=== PATIENT | female | born 1965 | race Caucasian/White ===

== ENCOUNTER 2017-06-13 11:09 | Emergency (ER) | payer MEDICARE, MEDICAID ==
[2017-06-13] MEDS ORDERED: Albuterol/Ipratropium NEB.SOL* Albuterol 2.5 MG/Ipratropium 0.5 MG 3 ML INH ONE (11:22)
[2017-06-13] MEDS ORDERED: predniSONE TAB* 20 MG PO ONE (11:22)
--- NOTE | 2017-06-13 11:40 | UC ---
Respiratory Complaint HPI - HPI Summary HPI Summary: 3-4 days of worsening SOB, No fever and she cannot remember when she had this much trouble breathing-last time she had to nebulize meds was 4-5 years ago - History of Current Complaint Chief Complaint: UCRespiratory Stated Complaint: SOB HEADACHE CONGESTION Time Seen by Provider: 06/13/17 11:15 Hx Obtained From: Patient Hx Last Menstrual Period: 4 MONTHS AGO ?: No Onset/Duration: Sudden Onset, Lasting Days - 4, Still Present Timing: Constant Pain Intensity: 0 Character: Cough: Nonproductive Aggravating Factors: Deep Breaths, Recumbent Position Alleviating Factors: Nothing Associated Signs And Symptoms: Positive: Dyspnea, URI - Allergies/Home Medications Allergies/Adverse Reactions: Allergies Allergy/AdvReac Type Severity Reaction Status Date / Time cefuroxime Allergy Rash Verified 06/13/17 11:17 Sulfa (Sulfonamide Allergy Hives Verified 06/13/17 11:17 Antibiotics) Home Medications: Home Medications Multiple Vitamin [Multivitamins] 1 cap PO DAILY 06/13/17 [History Confirmed 06/29] PMH/Surg Hx/FS Hx/Imm Hx Previously Healthy: No - Chronic Pain Respiratory History: COPD GI/ History: Other Other GI/ History: IBS Psychological History: Depression - Surgical History Surgical History: Yes Surgery Procedure, Year, and Place: c section, [place] [facility] [place] Family History Known Family History: Positive: None - Social History Occupation: Disabled Lives: With Family Alcohol Use: Daily Alcohol Amount: 12 pack/day Substance Use Type: None Substance Use Comment - Amount & Last Used: oxycodone Smoking Status (MU): Heavy Every Day Tobacco Smoker Type: Cigarettes Amount Used/How Often: 1 1/2 PPD Have You Smoked in the Last Year: Yes Household Exposure Type: Cigarettes Review of Systems Constitutional: Negative, Fatigue Skin: Negative Eyes: Negative ENT: Negative Respiratory: Shortness Of Breath, Cough Cardiovascular: Negative Gastrointestinal: Negative Genitourinary: Negative Motor: Negative Neurovascular: Negative Musculoskeletal: Negative Neurological: Negative Psychological: Negative Is Patient Immunocompromised?: No All Other Systems Reviewed And Are Negative: Yes Physical Exam Triage Information Reviewed: Yes Appearance: No Pain Distress, Ill-Appearing - chroniclly older than stated age, Thin Vital Signs: Initial Vital Signs Temp 98.4 F 06/13/17 11:12 Pulse 106 06/13/17 11:12 Resp 18 06/13/17 11:12 BP 146/92 06/13/17 11:12 Pulse Ox 94 06/13/17 11:12 Vital Signs Reviewed: Yes Eye Exam: Normal Eyes: Positive: Conjunctiva Clear ENT Exam: Normal ENT: Positive: Normal ENT inspection, Hearing grossly normal, Pharynx normal, TMs normal, Uvula midline. Negative: Nasal congestion, Nasal drainage, Tonsillar swelling, Trismus, Muffled voice, Hoarse voice, Dental tenderness, Sinus tenderness Neck exam: Normal Neck: Positive: Supple, Nontender, No Lymphadenopathy Respiratory Exam: Normal Respiratory: Positive: Chest non-tender, No accessory muscle use, Decreased breath sounds Cardiovascular Exam: Normal Cardiovascular: Positive: RRR, No Murmur, Pulses Normal, Brisk Capillary Refill Musculoskeletal Exam: Normal Musculoskeletal: Positive: Strength Intact, ROM Intact, No Edema Neurological Exam: Normal Neurological: Positive: Alert, Muscle Tone Normal Psychological Exam: Normal Skin Exam: Normal UC Diagnostic Evaluation - Laboratory O2 Sat by Pulse Oximetry: 94 Diagnostic Studies Comment: Influenza A/b (-) - Radiology Xray Interpretation: Positive (See Comments) - COPD, Linear Atelectasis of the Lingula Radiology Interpretation Completed By: Radiologist - EKG Cardiac Rate: NL Cardiac Rhythm: Sinus: Normal Ectopy: None ST Segment: Normal Re-Evaluation - Re-Evaluation First Eval Change: Improved - peak flow 150, taking po fluids, taking with daughter, feeling better, increase air movement- Respiratory Course/Dx - Course Course Of Treatment: Zithromax, albuterol neb, prednisone, alcohol and tabacco cesasation information, to ED should sx worsen in any way follow with pcp - Differential Dx/Diagnosis Provider Diagnoses: Acute exacerbation of COPD, Nicotine Dependent, alcohol abuse,elevated bloodpressure with diagnosis of hypertension Discharge - Discharge Plan Condition: Stable Disposition: HOME Prescriptions: Albuterol 2.5MG/3ML (0.083%)* [Ventolin 2.5 MG/3 ML NEB.BHAVANA*] 2.5 mg INH Q4H PRN #2 box PRN Reason: cough/wheeze/sob Azithromycin TAB* [Zithromax TAB (Z-ISABELL) 250 mg #6 tabs] 250 mg PO DAILY #4 tab predniSONE TAB* [Deltasone TAB*] 10 mg PO DAILY #26 tab Patient Education Materials: How to Stop Smoking (ED), COPD (Chronic Obstructive Pulmonary Disease) (ED), Chronic Bronchitis (ED), Hypertension (ED) , Alcohol Use Disorder (ED), Dyspnea Scale and Exercise (ED) Referrals: Bar Knox MD [Primary Care Provider] - 1 Week Additional Instructions: To Ed should symptoms worsen in anyway
[2017-06-13] MEDS ORDERED: Albuterol 2.5 MG/3 ML NEB.SOL* (0.083%) INH ONE ×2 (12:19→13:23)
--- NOTE | 2017-06-13 12:24 | RAD ---
HISTORY: Shortness of breath, COPD COMPARISONS: July 05, 2013 VIEWS: 4: Frontal dual-energy and lateral views of the chest. FINDINGS: CARDIOMEDIASTINAL SILHOUETTE: The cardiomediastinal silhouette is normal. BINTA: The binta are normal. PLEURA: The costophrenic angles are sharp. No pleural abnormalities are noted. LUNG PARENCHYMA: There is hyperinflation with flattening of the diaphragm and expansion of the AP diameter of the chest. There is linear opacification of the lingula. ABDOMEN: The upper abdomen is clear. There is no subphrenic gas. BONES AND SOFT TISSUES: No bone or soft tissue abnormalities are noted. OTHER: None. IMPRESSION: COPD. LINEAR ATELECTASIS OF THE LINGULA.
[2017-06-13] MEDS ORDERED: Azithromycin TAB* 250 MG PO ONE (13:22)
[2017-06-13 13:43] VITALS: BP 119/71
== END 2017-06-13 13:40 | disposition home or self-care (01) ==
LOC: UCEAST 11:09
DX: J44.1 Chronic obstructive pulmonary disease with (acute) exacerbation (principal); R03.0 Elevated blood-pressure reading, without diagnosis of hypertension; F17.210 Nicotine dependence, cigarettes, uncomplicated; G89.29 Other chronic pain; Z88.2 Allergy status to sulfonamides
CPT/HCPCS: 71046; 87502; 93005; 99213; A9270-GY; G0463; J7512

== ENCOUNTER 2017-06-16 19:25 | Inpatient (IN) | payer MEDICARE, MEDICAID ==
[2017-06-16] MEDS ORDERED: Albuterol/Ipratropium NEB.SOL* Albuterol 2.5 MG/Ipratropium 0.5 MG 3 ML INH ONE ×2 (20:42→23:03)
[2017-06-16] MEDS ORDERED: methylPREDNISolone 125 MG* 2 ML VIAL IV ONE (23:03)
[2017-06-16] MEDS ORDERED: Morphine INJ* 4 MG/ML 1 ML CARPUJECT IV ONE (23:08)
[2017-06-16] MEDS ORDERED: Magnesium Sulfate 2 GM IV* 2 GM/50 ML BAG IVPB ONE (23:08)
[2017-06-16] MEDS ORDERED: Levofloxacin 750 MG IVPREMIX(* 750 MG/150 ML BAG IVPB ONE (23:09)
[2017-06-16] MEDS: Albuterol 2.5 MG/3 ML NEB.SOL* (0.083%) INH SCH (23:31)
[2017-06-16 23:45] LABS: Urine Appearance Cloudy; Urine Blood Negative (Negative); Urine Color Yellow; Urine Ketones Negative (Negative); Urine Protein Negative (Negative); Urine Specific Gravity 1.008 (1.010-1.030); Urine Urobilinogen Negative (Negative)
[2017-06-16 23:52] LABS: Hematocrit 47 % (35-47); Hemoglobin 15.8 g/dl (12.0-16.0); Mean Corpuscular HGB Conc 34 g/dl (31-36); Mean Corpuscular Hemoglobin 35 pg (27-31); Mean Corpuscular Volume 103 fL (80-97); Mean Platelet Volume 7 um3 (7.4-10.4); Platelet Count 283 10^3/ul (150-450); Red Blood Count 4.56 10^6/ul (4.0-5.4); Red Cell Distribution Width 13 % (10.5-15); White Blood Count 11.6 10^3/ul (3.5-10.8)
[2017-06-16 23:54] LABS: ABS Basophils 0 10^3/ul (0-0.2); ABS Eosinophils 0 10^3/ul (0-0.6); ABS Lymphocytes 1.2 10^3/ul (1.0-4.8); ABS Monocytes 1.6 10^3/ul (0-0.8); ABS Neutrophils 8.8 10^3/ul (1.5-7.7); ABS Nucleated RBC 0 10^3/ul; Eosinophil % 0.2 % (0-6); Lymphocyte % 10.2 % (25-47); Nucleated Red Blood Cells % 0
[2017-06-16 23:57] LABS: EGFR Non-African American 134.8 (>60)
[2017-06-17] MEDS: Ondansetron INJ* 2 MG/ML VIAL IV ONE ×2 (00:11→01:43)
[2017-06-17] MEDS: NS 0.9% 1000 ML* 2,000 ML IV ONE ×2 (00:11→01:43)
[2017-06-17] MEDS ORDERED: Clopidogrel TAB* 300 MG PO ONE (00:14)
[2017-06-17] MEDS ORDERED: Aspirin Low Dose CHEW TAB* 81 MG PO ONE (00:14)
[2017-06-17] MEDS ORDERED: Enoxaparin(*) 40 MG/0.4 ML SYR SUBCUT ONE (00:15)
[2017-06-17] MEDS ORDERED: Mouth Piece, Nicotine* 1 EACH CARTRIDGE INH PRN (00:55)
[2017-06-17] MEDS ORDERED: NS 0.9% 1000 ML* 1,000 ML IV SCH (01:00)
[2017-06-17] MEDS ORDERED: oxyCODONE TAB* 5 MG TAB PO PRN ×3 (01:19→06:23)
--- NOTE | 2017-06-17 02:55 | HP ---
CC: Dr. Knox * HISTORY AND PHYSICAL: DATE OF ADMISSION: 06/17/17 PRIMARY CARE PROVIDER: Dr. Knox. CHIEF COMPLAINT: Shortness of breath. HISTORY OF PRESENT ILLNESS: Ms. Ramos is a 52-year-old female, who has history of COPD, alcohol abuse, and spondylosis, who presents to the emergency room with complaints of shortness of breath. The patient states that this past Friday, she started feeling as if she was developing a chest cold. She states that she gets very nervous when she starts to develop cold symptoms as she knows that it can affect her COPD. She noted that her shortness of breath progressed quickly and therefore, this past Friday, she went to [facility]. She states that at [facility], they performed a chest x-ray, EKG, flu swabs, which were all essentially negative and treated her with nebulizer, prednisone, and antibiotics. The patient states that despite initiating therapy , her symptoms have progressed dramatically. She states the last couple of days have been very bad for her. She indicates that she would become winded with just rolling over in bed. She states that her appetite has been very poor over the last 4 days. She does state during this period of time, she has not drunk any alcohol and has smoked only a couple of cigarettes. The patient also admits to difficult time sleeping and she has been having neck pain as well as episodes of what she feels are panic attacks. PAST MEDICAL HISTORY: 1. COPD. 2. Alcohol abuse. 3. Chronic back pain. PAST SURGICAL HISTORY: 1. . 2. Thoracic/upper lumbar back surgery. MEDICATIONS: 1. Lexapro 10 mg p.o. daily. 2. Azithromycin 250 mg p.o. daily. 3. Prednisone 10 mg p.o. daily. 4. OxyContin 15 mg p.o. q.6 hours p.r.n. pain. 5. Multivitamin 1 cap p.o. daily. 6. Symbicort 80/4.5 two puffs inhaled twice daily. 7. Albuterol 1 neb inhaled q.4 hours p.r.n. shortness of breath. ALLERGIES: CEFTIN and SULFA MEDICATIONS. FAMILY HISTORY: Mom at the age of 74 of lung cancer. Dad at the age of 55 of emphysema complications. SOCIAL HISTORY: The patient is an active smoker of 1-1/2 packs per day. She admits to drinking 12 to 14 beers per day, but again has not done over the last several days. She is on disability. She is not . She has 2 children. She indicates that her daughter, Naida, is her healthcare proxy. REVIEW OF SYSTEMS: Complete 11-system review of systems is obtained. Pertinent positives and negatives are as per HPI and in addition to the cough and shortness of breath, the patient does state that she is bring up copious mucus that has changed color from green to brown to now yellow and she does admit to chronic diarrhea. Otherwise, her review of systems is negative. PHYSICAL EXAMINATION GENERAL: The patient is a well-developed, thin, middle-aged female, sitting up in the stretcher, in no acute distress. VITAL SIGNS: Blood pressure 145/94; pulse 93; respirations 24; temp 97.9; O2 sat 92% on 2 L, reportedly 89% on room air. HEENT: Pupils are equal and round. Extraocular muscles are intact. Oropharynx is clear. Oral mucosa is moist. There is no submandibular, cervical , or supraclavicular adenopathy. Thyroid is not enlarged. No thyroid nodules noted. PULMONARY: Breath sounds are markedly diminished in all lung mars, but are clear. CARDIAC: Normal S1, S2. Regular rate and rhythm. I do not appreciate any murmurs. There is no lower extremity edema. ABDOMEN: Bowel sounds are present. Abdomen is soft, nontender, and nondistended. MUSCULOSKELETAL: There is no cyanosis or clubbing of the digits. There is full active range of motion of all 4 extremities. NEURO: Cranial nerves II through XII are grossly intact. Sensation is intact to light touch throughout. Strength is 5/5 and symmetric in both upper and lower extremities bilaterally. PSYCH: The patient is alert. She is oriented x3. Affect appears appropriate. SKIN: Warm and dry. There are no rashes. DIAGNOSTIC STUDIES/LAB DATA: WBC 11.6, hemoglobin 15.8, hematocrit 47, platelets 283. Sodium 135, potassium unable to be run, chloride 93, CO2 34, BUN 6, creatinine 0.48, glucose 129, lactic acid 2.2, calcium 10.1. Bilirubin 0.4, AST unable to be run, ALT 24, alk phos 92. Troponin 0.19. CRP 118.44. BNP 431. Albumin 3.9. Urinalysis reveals cloudy urine, specific gravity of 1.008, otherwise negative. EKG reveals normal sinus rhythm with inverted T waves in the anterior leads, which is new from her most recent EKG done on 06/13/17. Chest x-ray to my interpretation appears clear. ASSESSMENT AND PLAN: Ms. Ramos is a 52-year-old female with a history of ongoing tobacco abuse, chronic obstructive pulmonary disease, alcohol abuse, and chronic back pain, who presents to the emergency room with complaints of shortness of breath. 1. Chronic obstructive pulmonary disease exacerbation. At this point, the patient appears to be in a chronic obstructive pulmonary disease exacerbation. She is not wheezing currently, but did receive aggressive respiratory treatments in the emergency room. The patient will be admitted and placed on every 4-hour albuterol nebulizer treatments, IV steroids, and IV Levaquin. A sputum culture will be obtained as well urine for legionella and Strep pneumoniae antigens. A procalcitonin level will be added to the labs drawn in the emergency room. 2. Elevated troponin. I suspect this represents demand ischemia given her identified hypoxia as well as respiratory distress that she reports over the last couple of days. The patient does have T-wave inversions in the anterior leads. The patient will have a followup troponin obtained at 0 to 30. If the troponin continues to climb, Lovenox will be continued. She received a dose in the emergency room as well as Plavix 300 mg p.o. x1. A transthoracic echocardiogram will also be obtained to evaluate wall motion and ejection fraction. 3. Alcohol abuse. The patient states that she has not drank in several days. For now, I am going to hold off on starting a WAM protocol; however, if she begins to show any signs of alcohol withdrawal, this should be initiated. 4. Chronic pain. The patient will continue on oxycodone 15 mg p.o. p.r.n. pain. 5. DVT prophylaxis. According to the Adult Thrombosis Prophylaxis Risk Factor Assessment Guide, the patient has a total risk factor score of 2, making her moderate risk. She will be placed on heparin 5000 units subcutaneous q.8 hours. 6. Code status is full and the patient is willing to accept intubation if necessary. TIME SPENT: Sixty-five minutes was spent admitting this patient. [id number]/[facility] #: [id number] ALEJANDRA
[2017-06-17] MEDS: Nicotine Inhaler* 10 MG AMP INH PRN ×2 (05:02→17:29)
[2017-06-17] MEDS: Albuterol 2.5 MG/3 ML NEB.SOL* (0.083%) INH SCH ×3 (05:13→11:16)
[2017-06-17] MEDS ORDERED: Potassium Chlor TAB* 20 MEQ TAB.ER PO ONE (06:18)
--- NOTE | 2017-06-17 07:16 | RAD ---
INDICATION: Short of breath COMPARISON: June 13, 2017 TECHNIQUE: PA and lateral dual-energy views were obtained. FINDINGS: Bones/Soft Tissues: There are no acute bony findings. Cardiomediastinal: The cardiomediastinal silhouette is normal. Lungs: There are no acute infiltrates. There is hyperinflation with right middle lobe and/or lingular scarring or atelectasis Pleura: There are no pleural effusions. Other: None IMPRESSION: HYPERINFLATION WITH RIGHT MIDDLE LOBE AND/OR LINGULAR SCARRING OR ATELECTASIS, UNCHANGED.
[2017-06-17] MEDS: Nicotine PATCH 21 MG/24 HR* PATCH TRANSDERM SCH (09:05)
[2017-06-17] MEDS: Citalopram TAB* 20 MG PO SCH (09:08)
[2017-06-17] MEDS: Vitamin THERAPEUTIC TAB PO SCH (09:08)
[2017-06-17] MEDS: methylPREDNISolone SOD 40 MG* 1 ML VIAL IV SCH ×2 (09:09→21:45)
--- NOTE | 2017-06-17 09:12 | ECHO ---
Patient: RAUL STOUT [facility] Rec#: [id number] : 1965 Date: 06/17/2017 Age: 52y Height: 154.9 cm / 61.0 in Weight: 41.7 kg / 91.9 lbs Sex: F BSA: 1.4 Room#: 431 Admit Date#: 06/17/2017 Type: Inpatient Referring: Ester Suarez DO Reading: Tyrell Washington MD Pipe Chipper: Christine Aguilar RN RDCS CC: Bar Knox MD Transthoracic Echocardiogram Indication: Shortness of breath, elevated troponin levels BP: 119/80 HR: 86 Rhythm: NSR Findings History: COPD, smoker, alcohol abuse Technical Comments: The study quality is fair. The study is technically limited due to the patient's history of COPD. The study is technically limited due to the patient's smoking history. Completed at 0900. Left Ventricle: The left ventricular chamber size is normal. Global left ventricular wall motion and contractility are within normal limits. There is normal left ventricular systolic function. The estimated ejection fraction is 55-60%. There is an E to A reversal in the mitral valve flow pattern suggestive of diastolic dysfunction. Left Atrium: The left atrial chamber size is normal. Right Ventricle: The right ventricle wall thickness is mildly increased. The right ventricular cavity size is normal. The right ventricular global systolic function is mildly reduced. Right Atrium: The right atrial cavity size is normal. Aortic Valve: The aortic valve is trileaflet. The aortic valve leaflets are mildly thickened. There is no evidence of aortic regurgitation. There is no evidence of aortic stenosis. Mitral Valve: The mitral valve leaflets are mildly thickened. There is a trace of mitral regurgitation. There is no evidence of mitral stenosis. Tricuspid Valve: The tricuspid valve leaflets are normal. There is trace to mild tricuspid regurgitation. No pulmonary hypertension is noted. Pulmonic Valve: The pulmonic valve appears normal. There is mild pulmonic regurgitation. There is no pulmonic stenosis. Pericardium: There is no significant pericardial effusion. Aorta: There is no dilatation of the ascending aorta. There is no dilatation of the aortic arch. There is no dilation of the aortic root. Pulmonary Artery: The main pulmonary artery appears normal. Venous: The inferior vena cava appears normal in size. There is a greater than 50% respiratory change in the inferior vena cava dimension. Conclusions Global left ventricular wall motion and contractility are within normal limits. There is normal left ventricular systolic function. The estimated ejection fraction is 55-60%. There is no evidence of aortic stenosis. There is a trace of mitral regurgitation. There is trace to mild tricuspid regurgitation. No pulmonary hypertension is noted. There is no significant pericardial effusion. Measurements Name Value Normal Range RVDdMajor (2D) 2.8 cm (2.2 - 4.4) RVAW (2D) 0.8 cm (0.2 - 0.5) RAd ISD 4CH 3.8 cm (3.4 - 4.9) RA (A4C)W 3.2 cm (2.9 - 4.6) IVSd (2D) 1 cm (0.6 - 1) LVPWd (2D) 1 cm (0.6 - 1) LVIDd (2D) 3.4 cm (3.6 - 5.4) LVIDs (2D) 2.4 cm - LV FS (2D) 29 % (25 - 45) Aortic Annulus 1.8 cm (1.4 - 2.6) Ao root diameter (2D) 2.6 cm (2.1 - 3.5) Ascending Ao 2.5 cm (2.1 - 3.4) Aortic arch 2.3 cm (1.8 - 3.4) LA dimension (AP) 2D 2.7 cm (2.3 - 3.8) LAd ISD 4CH 3.4 cm (2.9 - 5.3) LA ISD 4CH W 3.4 cm (2.5 - 4.5) Name Value Normal Range LA ESV SP 4CH (A/L) 24.29 ml - LA ESV SP 2CH (A/L) 30.97 ml - LA ESV BP (A/L) 28.36 ml - LA ESV BP (A/L) index 21 ml/m2 - LA ESV SP 4CH (MOD) 21.98 ml - LA ESV SP 2CH (MOD) 30.48 ml - Name Value Normal Range MV E-wave Vmax 0.7 m/sec - MV deceleration time 219 msec - MV A-wave Vmax 0.95 m/sec - MV E:A ratio 0.74 ratio - LV septal e' Vmax 0.08 m/sec - LV lateral e' Vmax 0.09 m/sec - LV E:e' septal ratio 8.8 ratio - LV E:e' lateral ratio 7.8 ratio - Name Value Normal Range AV Vmax 1.6 m/sec - AV VTI 36.3 cm - AV peak gradient 10.4 mmHg - AV mean gradient 6 mmHg - LVOT Vmax 1.1 m/sec - LVOT VTI 24 cm - LVOT peak gradient 4.5 mmHg - LVOT mean gradient 2.2 mmHg - ANKUR Vmax 0.62 m/sec - Name Value Normal Range TR Vmax 2.4 m/sec - TR peak gradient 23 mmHg - RAP 3 mmHg - RVSP 26 mmHg - IVC diameter 1.5 cm - Name Value Normal Range PV Vmax 0.91 m/sec -
[2017-06-17] MEDS: Mometasone/Formoter 100/5 MDI INH SCH ×2 (09:28→20:42)
--- NOTE | 2017-06-17 10:07 | PN ---
Subjective Date of Service: 06/17/17 Interval History: Ms. Ramos reports feeling better overall but she remains very dyspneic with exertion. She reports a non-productive cough, denies chest pain, nausea, or abdominal pain. Objective Active Medications: Albuterol (Ventolin 2.5 Mg/3 Ml Neb.Muriel*) 2.5 mg INH [id number] AWAKE [facility] Citalopram Hydrobromide (Celexa Tab*) 20 mg PO DAILY [facility] Device (Nicotine Mouth Piece*) 1 each INH .USE WITH NICOTROL PRN Sodium Chloride (Ns 0.9% 1000 Ml*) 1,000 mls @ 125 mls/hr IV PER RATE [facility] Levofloxacin/Dextrose (Levaquin 500 Mg Ivpremix(*)) 500 mg in 100 mls @ 100 mls /hr IVPB Q24H [facility] Methylprednisolone Sodium Succinate (Solu-Medrol 40 Mg) 40 mg IV Q12H [facility] Mometasone Furoate/Formoterol Fumar (Dulera 100/5 Mdi*) 2 puff INH BID [facility] Multivitamins (Theragran Tab*) 1 tab PO DAILY [facility] Nicotine (Nicotine Inhaler*) 10 mg INH Q2H PRN Nicotine (Nicotine Patch 21 Mg/24 Hr*) 1 patch TRANSDERM DAILY@0800 [facility] Oxycodone HCl (Roxycodone Tab*) 5 mg PO Q4H PRN Oxycodone HCl (Roxycodone Tab*) 10 mg PO Q4H PRN Pharmacy Profile Note (Nicotine Patch Removal Note*) 1 note PATCH OFF 2100 [facility] Vital Signs: Temp Pulse Resp BP Pulse Ox 97.2 F 90 14 119/80 99 06/17/17 02:51 06/17/17 09:36 06/17/17 09:36 06/17/17 02:51 06/17/17 09:36 Oxygen Devices in Use Now: None Appearance: Female sitting up in bed in NAD Eyes: No Scleral Icterus Ears/Nose/Mouth/Throat: Mucous Membranes Moist Neck: Trachea Midline Respiratory: Symmetrical Chest Expansion and Respiratory Effort, Clear to Auscultation Cardiovascular: NL Sounds; No Murmurs; No JVD, No Edema Abdominal: NL Sounds; No Tenderness; No Distention Extremities: No Edema Skin: No Rash or Ulcers Neurological: Alert and Oriented x 3, NL Muscle Strength and Tone Nutrition: Taking PO's Result Diagrams: 06/16/17 23:30 06/17/17 03:45 Microbiology and Other Data: . Assess/Plan/Problems-Billing Assessment: Ms. Ramos is a 52 yo female with a PMH of COPD, continued smoking, and alcohol abuse who was admitted on 06/17/17 with a COPD exacerbation after failure of outpatient treatment. - Patient Problems (1) COPD exacerbation Comment: - Good improvement, but given that she remains MODI and failed outpatient treatment will monitor overnight. - Continue solumedrol, levaquin, dulera, O2 as needed. (2) Elevated troponin Comment: - Trop peaked at 0.19. EKG with new inverted T waves in the anterior leads on arrival which resolved. - No evidence of wall motion abnormalities on echo. - Suspect demand ischemia. - Recommend outpatient stress testing once recovered from acute illness. (3) Alcohol abuse Comment: - No sign of withdrawal. - Cessation counseling offered. (4) Nicotine abuse Comment: - Nicotine replacement available prn. - Cessation counseling offered. (5) Chronic pain Comment: - Continue oxycodone. (6) Depression Comment: - Continue citalopram. (7) DVT prophylaxis Comment: - Heparin SQ. (8) Full code status Comment: Status and Disposition: Inpatient. Anticipate discharge to home when medically stable.
[2017-06-17] MEDS: Heparin VIAL(*) 5000 UNITS/ML VIAL (FIVE THOUSAND) SUBCUT SCH ×2 (14:08→21:46)
[2017-06-17] MEDS: Albuterol 2.5 MG/3 ML NEB.SOL* (0.083%) INH PRN (18:15)
--- NOTE | 2017-06-17 19:25 | ED ---
Angeli Alexander Gabriel, scribed for Yolanda Rojas MD on 06/16/17 at 2301 . Shortness of Breath - HPI Summary HPI Summary: This patient is a 52 year old F presenting [facility] accompanied by her daughter with a chief complaint of SOB since 06-10-17. The patient rates the pain 6/10 in severity. Patient reports yellow productive cough, decreased PO intake, and CP. Patient denies fever. Pt was seen at on 06-13-17 and given prednisone and amoxicillin but she states she has gotten worse since then. Hx of COPD and takes albuterol treatments prn as well as oxycodone daily. Pt is not on NC O2 at home. - History of Current Complaint Chief Complaint: EDShortnessOfBreath Time Seen by Provider: 06/16/17 22:25 Hx Obtained From: Patient Onset/Duration: Lasting Days, Still Present Timing: Constant Current Severity: Severe Dyspnea At: Rest Alleviating Factors: Nothing Associated Signs & Symptoms: Cough (Productive), Chest Pain w/Cough - Allergy/Home Medications Allergies/Adverse Reactions: Allergies Allergy/AdvReac Type Severity Reaction Status Date / Time cefuroxime Allergy Rash Verified 06/16/17 19:45 Sulfa (Sulfonamide Allergy Hives Verified 06/16/17 19:45 Antibiotics) Home Medications: Home Medications oxyCODONE TAB* [Roxycodone TAB 5 mg*] 15 mg PO Q4H PRN 06/17/17 [History Confirmed 06/17/17] PMH/Surg Hx/FS Hx/Imm Hx Endocrine/Hematology History: Denies: Hx Diabetes, Hx Thyroid Disease Cardiovascular History: Denies: Hx Hypertension Respiratory History: Reports: Hx Asthma, Hx Chronic Obstructive Pulmonary Disease (COPD) GI History: Reports: Hx Gastroesophageal Reflux Disease Denies: Hx Ulcer Musculoskeletal History: Reports: Hx Back Problems - spondylolysis Psychiatric History: Reports: Hx Depression, Hx Inpatient Treatment, Hx Community Mental Health Tx, Other Psychiatric Issues/Disorders - hx of alcohol abuse--outpatient treatment - Surgical History Surgery Procedure, Year, and Place: c section, laminotomy-2003 [facility] Infectious Disease History: No Infectious Disease History: Denies: Hx Hepatitis, Hx Human Immunodeficiency Virus (HIV), Traveled Outside the [place] in Last 30 Days - Family History Known Family History: Negative: Renal Disease, Respiratory Disease, Seizure Disorder - Social History Lives: With Family Alcohol Use: Daily Alcohol Amount: 12 pack/day Substance Use Type: Reports: Prescribed Substance Use Comment - Amount & Last Used: oxycodone Hx Tobacco Use: Yes Smoking Status (MU): Heavy Every Day Tobacco Smoker Type: Cigarettes Amount Used/How Often: 1 1/2 PPD Have You Smoked in the Last Year: Yes Review of Systems Positive: Chest Pain Positive: Shortness Of Breath, Cough Gastrointestinal: Other - decreased PO intake All Other Systems Reviewed And Are Negative: Yes Physical Exam - Summary Physical Exam Summary: VITAL SIGNS: Reviewed. GENERAL: Patient is a well-developed and nourished female who is lying comfortable in the stretcher. Patient appears anxious HEAD AND FACE: No signs of trauma. No ecchymosis, hematomas or skull depressions. No sinus tenderness. EYES: PERRLA, EOMI x 2, No injected conjunctiva, no nystagmus. EARS: Hearing grossly intact. Ear canals and tympanic membranes are within normal limits. MOUTH: Oropharynx within normal limits. NECK: Supple, trachea is midline, no adenopathy, no JVD, no carotid bruit, no c- spine tenderness, neck with full ROM. CHEST: Symmetric, no tenderness at palpation LUNGS: decreased breath sounds bilaterally. Diffuse expiratory wheezes CVS: tachycardia, S1 and S2 present, no murmurs or gallops appreciated. ABDOMEN: Soft, non-tender. No signs of distention. No rebound no guarding, and no masses palpated. Bowel sounds are normal. EXTREMITIES: FROM in all major joints, no edema, no cyanosis or clubbing. NEURO: Alert and oriented x 3. No acute neurological deficits. Speech is normal and follows commands. SKIN: Dry and warm Triage Information Reviewed: Yes Vital Signs On Initial Exam: Initial Vitals Temp Pulse Resp BP Pulse Ox 97.9 F 93 24 145/94 92 06/16/17 19:40 06/16/17 19:40 06/16/17 19:40 06/16/17 19:40 06/16/17 19:40 Vital Signs Reviewed: Yes Diagnostics - Vital Signs Vital Signs Temp Pulse Resp BP Pulse Ox 06/16/17 19:40 97.9 F 93 24 145/94 92 - Laboratory Result Diagrams: 06/16/17 23:30 06/17/17 03:45 Lab Statement: Any lab studies that have been ordered have been reviewed, and results considered in the medical decision making process. - Radiology CXR Radiology Interpretation Completed By: Radiologist - COPD, no acute changes from on done on 06-13-17 - EKG 2343 Cardiac Rate: NL EKG Rhythm: Sinus Rhythm - at 80 BPM EKG Interpretation: normal axis, normal interval, T wave inversion in septal leads with minimal Course/Dx - Course Assessment/Plan: This patient is a 52 year old F presenting to [facility] accompanied by her daughter with a chief complaint of SOB since 06-10-17. The patient rates the pain 6/10 in severity. Patient reports yellow productive cough, decreased PO intake, and CP. Patient denies fever. Pt was seen at on and given prednisone and amoxicillin but she states she has gotten worse since then. Hx of COPD and takes albuterol treatments prn as well as oxycodone daily. Pt is not on NC O2 at home. An EKG reveals NSR 80 BPM normal axis, normal interval, T wave inversion in septal leads with minimal ST depression in lateral leads with poor R wave progression. CXR reveals, per radiologist, COPD , no acute changes from on done on 06-13-17. Test results with no significant abnormalities except for a lactic of 2.2 and a trop of .19. In the ED course the [facility] Dx COPD exacerbation, Non stemi. 0023 We discussed patient care with Dr. lombardi and they agreed to admit the patient. Patient will be admitted. The patient is agreeable with this plan. - Diagnoses Provider Diagnoses: Non-STEMI (non-ST elevated myocardial infarction), COPD exacerbation Discharge - Discharge Plan Condition: Fair Disposition: ADMITTED TO [facility] The documentation as recorded by the Angeli holloway Gabriel accurately reflects the service I personally performed and the decisions made by me, Yolanda Rojas MD.
[2017-06-17] MEDS: CMCS Melatonin (NF) 3 MG TAB PO SCH (21:45)
[2017-06-17] MEDS: Nicotine Patch Removal NOTE PATCH OFF SCH (21:55)
[2017-06-18] MEDS: Levofloxacin 500 MG IVPREMIX(* 500 MG/100 ML BAG IVPB SCH ×2 (01:49→23:57)
[2017-06-18] MEDS: Heparin VIAL(*) 5000 UNITS/ML VIAL (FIVE THOUSAND) SUBCUT SCH ×3 (05:10→20:04)
[2017-06-18] MEDS: Mometasone/Formoter 100/5 MDI INH SCH ×2 (08:15→20:58)
[2017-06-18] MEDS: methylPREDNISolone SOD 40 MG* 1 ML VIAL IV SCH (08:19)
[2017-06-18] MEDS: Citalopram TAB* 20 MG PO SCH (08:19)
[2017-06-18] MEDS: Vitamin THERAPEUTIC TAB PO SCH (08:19)
[2017-06-18] MEDS: Nicotine PATCH 21 MG/24 HR* PATCH TRANSDERM SCH (08:19)
[2017-06-18] MEDS: Albuterol 2.5 MG/3 ML NEB.SOL* (0.083%) INH PRN (10:25)
[2017-06-18] MEDS: Nicotine Inhaler* 10 MG AMP INH PRN ×3 (13:19→20:10)
--- NOTE | 2017-06-18 18:13 | PN ---
Subjective Date of Service: 06/18/17 Interval History: Patient complains of increased non-productive cough and shortness of breath with minimal exertion. Patient denies F/C, N/V, abdominal pain, CP, palpitations , headache, diarrhea, constipation, or other pain. Patient continues to be committed to smoking cessation. Patient walked with the nurse and decreased and her O2 saturation to 89% with significant dyspnea. Family History: Unchanged from Admission Social History: Unchanged from Admission Past Medical History: Unchanged from Admission Objective Active Medications: Albuterol (Ventolin 2.5 Mg/3 Ml Neb.Muriel*) 2.5 mg INH Q4H PRN PRN Reason: SOB/WHEEZING Last Admin: 06/18/17 10:25 Dose: 2.5 mg Citalopram Hydrobromide (Celexa Tab*) 20 mg PO DAILY [facility] Last Admin: 06/18/17 08:19 Dose: 20 mg Device (Nicotine Mouth Piece*) 1 each INH .USE WITH NICOTROL PRN PRN Reason: CRAVING Last Admin: 06/17/17 05:01 Dose: 1 each Heparin Sodium (Porcine) (Heparin Vial(*)) 5,000 units SUBCUT Q8HR [facility] Last Admin: 06/18/17 13:24 Dose: 5,000 units Levofloxacin/Dextrose (Levaquin 500 Mg Ivpremix(*)) 500 mg in 100 mls @ 100 mls /hr IVPB Q24H [facility] Last Admin: 06/18/17 01:49 Dose: 100 mls/hr Melatonin (Melatonin (Nf)) 3 mg PO BEDTIME [facility] Last Admin: 06/17/17 21:45 Dose: 3 mg Methylprednisolone Sodium Succinate (Solu-Medrol 40 Mg) 40 mg IV Q12H [facility] Last Admin: 06/18/17 08:19 Dose: 40 mg Mometasone Furoate/Formoterol Fumar (Dulera 100/5 Mdi*) 2 puff INH BID [facility] Last Admin: 06/18/17 08:15 Dose: 2 puff Multivitamins (Theragran Tab*) 1 tab PO DAILY [facility] Last Admin: 06/18/17 08:19 Dose: 1 tab Nicotine (Nicotine Inhaler*) 10 mg INH Q2H PRN PRN Reason: CRAVING Last Admin: 06/18/17 17:52 Dose: 10 mg Nicotine (Nicotine Patch 21 Mg/24 Hr*) 1 patch TRANSDERM DAILY@0800 [facility] Last Admin: 06/18/17 08:19 Dose: 1 patch Oxycodone HCl (Roxycodone Tab*) 5 mg PO Q4H PRN PRN Reason: pain 1-5 Oxycodone HCl (Roxycodone Tab*) 10 mg PO Q4H PRN PRN Reason: Pain 6-10 Pharmacy Profile Note (Nicotine Patch Removal Note*) 1 note PATCH OFF 2100 [facility] Last Admin: 06/17/17 21:55 Dose: 1 note Vital Signs - 8 hr 06/18/17 06/18/17 11:06 15:07 Temperature 98.2 F 98.0 F Pulse Rate 84 87 Respiratory 20 18 Rate Blood Pressure 137/72 128/82 (mmHg) O2 Sat by Pulse 94 93 Oximetry Oxygen Devices in Use Now: None Appearance: Patient is a 52yo female who appears stated age and is sitting in the bed in [facility]. Eyes: No Scleral Icterus, PERRLA Ears/Nose/Mouth/Throat: NL Teeth, Lips, Gums, Clear Oropharnyx, Mucous Membranes Moist Neck: NL Appearance and Movements; NL JVP, Trachea Midline Respiratory: Symmetrical Chest Expansion and Respiratory Effort, Clear to Auscultation, - - Diminished throughout Cardiovascular: NL Sounds; No Murmurs; No JVD, RRR, No Edema Abdominal: NL Sounds; No Tenderness; No Distention Lymphatic: No Cervical Adenopathy Extremities: No Edema, No Clubbing, Cyanosis Skin: No Rash or Ulcers, No Nodules or Sclerosis Neurological: Alert and Oriented x 3, NL Sensation, NL Muscle Strength and Tone Result Diagrams: 06/16/17 23:30 06/17/17 03:45 Microbiology and Other Data: . Assess/Plan/Problems-Billing Assessment: Ms. Ramos is a 52 yo female with a PMH of COPD, continued smoking, and alcohol abuse who was admitted on 06/17/17 with a COPD exacerbation after failure of outpatient treatment. - Patient Problems (1) COPD exacerbation Current Visit: Yes Status: Acute Code(s): J44.1 - CHRONIC OBSTRUCTIVE PULMONARY DISEASE W (ACUTE) EXACERBATION SNOMED Code(s): 625100334 Comment: Slight improvement, but given that she remains MODI and failed outpatient treatment will monitor overnight. Continue Prednisone, levaquin, dulera. (2) Alcohol abuse Current Visit: Yes Status: Acute Code(s): F10.10 - ALCOHOL ABUSE, UNCOMPLICATED SNOMED Code(s): 14861675 Comment: No signs of withdrawal (3) Chronic pain Current Visit: Yes Status: Acute Code(s): G89.29 - OTHER CHRONIC PAIN SNOMED Code(s): 48002961 Comment: Continue oxycodone. (4) Depression Current Visit: Yes Status: Acute Code(s): F32.9 - MAJOR DEPRESSIVE DISORDER , SINGLE EPISODE, UNSPECIFIED SNOMED Code(s): 50191956 Comment: Continue citalopram. (5) Elevated troponin Current Visit: Yes Status: Acute Code(s): R74.8 - ABNORMAL LEVELS OF OTHER SERUM ENZYMES SNOMED Code(s): 343074149 Comment: Trop peaked at 0.19. EKG with new inverted T waves in the anterior leads on arrival which resolved. No evidence of wall motion abnormalities on echo. Suspect demand ischemia. Recommend outpatient stress testing once recovered from acute illness. (6) Nicotine abuse Current Visit: Yes Status: Acute Code(s): Z72.0 - TOBACCO USE SNOMED Code( s): 725139430 Comment: Nicotine replacement available prn. Cessation counseling offered. Interested in nicotine replacement outpatient. (7) Full code status Current Visit: Yes Status: Acute Code(s): Z78.9 - OTHER SPECIFIED HEALTH STATUS SNOMED Code(s): 558674038 Comment: (8) DVT prophylaxis Current Visit: Yes Status: Acute Code(s): NJF2956 - SNOMED Code(s): 316014549 Comment: - Heparin SQ. Status and Disposition: Inpatient. Anticipate discharge to home when medically stable.
[2017-06-18] MEDS: CMCS Melatonin (NF) 3 MG TAB PO SCH (20:04)
[2017-06-18] MEDS: Nicotine Patch Removal NOTE PATCH OFF SCH (20:10)
[2017-06-19 05:09] LABS: Hematocrit 41 % (35-47); Hemoglobin 14.1 g/dl (12.0-16.0); Mean Corpuscular HGB Conc 34 g/dl (31-36); Mean Corpuscular Hemoglobin 35 pg (27-31); Mean Corpuscular Volume 102 fL (80-97); Mean Platelet Volume 7 um3 (7.4-10.4); Platelet Count 377 10^3/ul (150-450); Red Blood Count 4.03 10^6/ul (4.0-5.4); Red Cell Distribution Width 13 % (10.5-15); White Blood Count 9.8 10^3/ul (3.5-10.8)
[2017-06-19] MEDS: Heparin VIAL(*) 5000 UNITS/ML VIAL (FIVE THOUSAND) SUBCUT SCH (05:12)
[2017-06-19 05:42] LABS: EGFR Non-African American 106.2 (>60)
[2017-06-19 06:30] LABS: ABS Basophils 0.1 10^3/ul (0-0.2); ABS Eosinophils 0 10^3/ul (0-0.6); ABS Lymphocytes 1.3 10^3/ul (1.0-4.8); ABS Monocytes 0.4 10^3/ul (0-0.8); ABS Nucleated RBC 0 10^3/ul; Eosinophil % 0.3 % (0-6); Nucleated Red Blood Cells % 0
[2017-06-19 07:32] VITALS: BP 129/68
[2017-06-19] MEDS: Mometasone/Formoter 100/5 MDI INH SCH (07:48)
[2017-06-19] MEDS: Citalopram TAB* 20 MG PO SCH (08:50)
[2017-06-19] MEDS: Nicotine PATCH 21 MG/24 HR* PATCH TRANSDERM SCH (08:50)
[2017-06-19] MEDS: Vitamin THERAPEUTIC TAB PO SCH (08:50)
[2017-06-19] MEDS ORDERED: predniSONE TAB* 20 MG PO SCH (09:00)
[2017-06-19] MEDS: Nicotine Inhaler* 10 MG AMP INH PRN (09:06)
[2017-06-19] MEDS: Albuterol 2.5 MG/3 ML NEB.SOL* (0.083%) INH PRN (11:17)
--- NOTE | 2017-06-20 15:01 | DS ---
CC: Dr. Bar Knox * DISCHARGE SUMMARY: DATE OF ADMISSION: 06/17/17 DATE OF DISCHARGE: 06/19/17 PRIMARY CARE PROVIDER: Dr. Bar Knox MY ATTENDING WHILE IN THE HOSPITAL: Dr. Enoc Zhang.* (DICTATED BY KARINA BAUER) PRIMARY DISCHARGE DIAGNOSES: 1. Chronic obstructive pulmonary disease exacerbation. 2. Tobacco abuse. 3. Possible pneumonia. SECONDARY DISCHARGE DIAGNOSES: 1. Chronic obstructive pulmonary disease. 2. Alcohol abuse. 3. Chronic back pain. STUDIES DONE WHILE IN THE HOSPITAL: Chest x-ray from 06/16/17 shows hyperinflation of right middle lobe and/or lingular scarring or atelectasis, unchanged. Electrocardiogram from 06/16/17 shows left ventricular hypertrophy, T wave inversions V1 through V4, T wave flattening V5 and V6, normal axis, intraventricular conduction delay. No other abnormalities. Possible left atrial enlargement and QTc of 46. Transthoracic echocardiogram from 06/17/17 read as left ventricular size normal, left ventricular wall motion contractility within normal limits, normal left ventricular systolic function, estimated ejection fraction of 55% to 60%, E to A reversal, mitral valve flow pattern suggestive of diastolic dysfunction, left ventricular wall thickness mildly increased, left ventricular size normal, left ventricular systolic function is mildly reduced. No evidence of aortic stenosis. Trace mitral regurgitation. Trace tricuspid regurgitation. No pulmonary hypertension. No significant pericardial effusion. EKG from 06/17/17 shows resolution of T wave inversions. No significant changes from previous EKG. New QTc 515. MEDICATIONS: At discharge: 1. Symbicort 2 puffs inhalation b.i.d. 2. Lexapro 10 mg p.o. daily. 3. Multivitamin 1 cap daily. 4. Albuterol 2.5 mg per 3 mL, 2.5 mg inhalation q.4 hours as needed. 5. Oxycodone 15 mg p.o. q.4 hours as needed. 6. Nicotine inhaler 10 mg inhalation q.2 hours as needed. 7. Nicotine patch 21 mcg per 24 hours, 1 patch transdermal daily. 8. Prednisone 60 mg p.o. daily with taper. 9. Levofloxacin 500 mg p.o. daily x4. New medications at discharge: 1. Nicotine inhaler. 2. Nicotine patch. 3. Prednisone. 4. Levofloxacin. Medications discontinued on discharge: 1. Azithromycin. 2. Prednisone 10 mg p.o. daily. HOSPITAL COURSE: This is a brief summary of the patient's presentation. For more detail, please see the history and physical from Dr. Ester Suarez on 10/27. In brief, the patient is a 52-year-old female with past medical history significant for the above, who presented to the emergency department with shortness of breath since the 11 of June, that felt like a chest cold. She went to [facility], was given a chest x-ray, flu swab, and nebulizer, which were all negative. The patient was started on prednisone and azithromycin as above. After this, her symptoms progressed dramatically. No significant exercise intolerance and shortness of breath with any activity. The patient had significantly decreased amount of alcohol and smoking over the course of her sickness. The patient has also been having what she believes were panic attacks. The patient had a chest x- ray, read as above. The patient had an elevated troponin while in the emergency department at 0.19, which decreased to 0.13 and 0.10. The patient also had an elevated CRP, lactic acid, and BNP. The patient's repeat influenza was negative. The patient had hypokalemia. The patient had leukocytosis with a monocytic predominance. The patient had no other abnormalities. The patient was admitted to the hospital, given IV fluids , Levaquin. The patient had an ABG, which showed pCO2 of 53, pCO2 of 66, and a 6.5 base excess on 2 L of oxygen. The patient was given nebulizers q.4 hours, antibiotics, fluids, Solu-Medrol. The patient had an echo, read as above. The patient had negative urine Legionella and strep pneumo antigens. The patient's procalcitonin was 0.3 indicating probable bacterial infection. The patient was continued on levofloxacin. The patient had no signs of alcohol withdrawal. The patient was able to be weaned off oxygen early in her hospitalization in the morning of 06/17/17. The patient had no other vital sign abnormalities. The patient was much improved on 06/18/17, but when she went on a walk with the nursing staff with pulse oximetry, her saturation dropped to 89% and she became significantly short of breath. The patient was able to then walk better in the day without these happening. The patient improved again overnight from to 06/19/17. The patient had no complaints in the morning of 06/19/17. The patient was able to walk without getting significantly winded, but did not feel she was quite at her past level of functioning. The patient was amenable to going home. PHYSICAL EXAMINATION: On day of discharge: General: The patient is a 52-year- old female, appears stated age and sitting comfortably in bed, in no acute distress. Vital signs at the time of discharge: Temperature 98.2, pulse rate 74 , respiratory rate 20, oxygen saturation 92% on room air, blood pressure 129/ 68. HEENT: Head normocephalic, atraumatic. Sclerae anicteric. No conjunctival injection. Nasal mucosa moist. Oral mucosa moist. No pharyngeal erythema, discharge, or exudate. Neck: Supple, nontender. No lymphadenopathy. No carotid bruit auscultated. Cardiac: Regular rate and rhythm. No clicks, murmurs, gallops, or rubs. Pulses 2+ in bilateral dorsalis pedis, posterior tibialis, and radial areas. No bilateral lower extremity edema. Respiratory: Clear to auscultation bilaterally. No wheezes, rales, or rhonchi. Good air exchange bilaterally. Diminished breath sounds throughout. Abdomen: Soft, nontender, nondistended. Bowel sounds present and normoactive in all 4 quadrants. No abdominal bruits auscultated. Genitourinary: No suprapubic tenderness or CVA tenderness. Skin: Clean, dry, intact. No rash. Neuro: Cranial nerves II through XII are grossly intact. No focal deficits. Normal gait. Psychiatric: Pleasant and cooperative. LABORATORY DATA: On day of discharge: White blood cell count 9.8, hemoglobin 14.1, MCV 102. Sodium 138, potassium 4.3, chloride 103, carbon dioxide 29, anion gap 6, BUN 15, creatinine 0.59, glucose 105, calcium 9.3. DISCHARGE PLAN: The patient will be discharged to home on a prednisone taper, rescue nebulizer, and maintenance inhalers as above. The patient will also be continued on Levaquin for probable bacterial pneumonia due to increased calcitonin. The patient had increased troponin while in the hospital with a strain pattern on her electrocardiogram. The patient should follow up with her primary care provider within 1 week to discuss her hospitalization and to schedule an outpatient stress test after the acute phase of her illness. The patient should return to the hospital for severe decrease in her respiratory status, chest pain, or other alarming symptoms. The patient should engage in activities as tolerated. The patient should have a heart-healthy diet without caffeine. The patient should discuss smoking cessation, which she states she was very motivated with her primary care provider. The patient was provided with nicotine inhalers and patches for the next 14 days, after which, she could talk to her primary care provider for continued prescriptions. TIME SPENT: Approximately 60 minutes were spent on this discharge, 30 of which spent [id number] with the patient obtaining history and physical and discussing treatment plan. KARINA BAUER [id number]/[facility] #: [id number] ALEJANDRA
== END 2017-06-19 11:50 | disposition home or self-care (01) | DRG 640 ==
LOC: ED 19:25 → MEDTELE 06-17 00:55
PROVIDERS: ADMIT Hospitalist; ATTEND Internal Medicine
DX: E87.6 Hypokalemia (principal); J18.9 Pneumonia, unspecified organism; J44.0 Chronic obstructive pulmonary disease with (acute) lower respiratory infection; I08.1 Rheumatic disorders of both mitral and tricuspid valves; J44.1 Chronic obstructive pulmonary disease with (acute) exacerbation; F10.10 Alcohol abuse, uncomplicated; Y90.9 Presence of alcohol in blood, level not specified; G89.29 Other chronic pain; M54.9 Dorsalgia, unspecified; F41.0 Panic disorder [episodic paroxysmal anxiety]; F17.210 Nicotine dependence, cigarettes, uncomplicated; R09.02 Hypoxemia; F32.9 Major depressive disorder, single episode, unspecified; R74.8 Abnormal levels of other serum enzymes; Z88.8 Allergy status to other drugs, medicaments and biological substances; Z88.2 Allergy status to sulfonamides; Z80.1 Family history of malignant neoplasm of trachea, bronchus and lung; Z79.52 Long term (current) use of systemic steroids; Z83.6 Family history of other diseases of the respiratory system
CPT/HCPCS: 36415; 36600; 71046; 80048; 80053; 81003; 82803; 83605; 83880; 84132; 84145; 84484; 85025; 86140; 86803; 87040; 87070; 87205; 87502; 87899; 93005; 93306; 94640; 96374; 99284; A9270-GY; J1644; J1650; J1956; J2270; J2405; J2920; J2930; J3475; J7512

== ENCOUNTER 2017-09-30 13:34 | Emergency (ER) | payer MEDICARE, MEDICAID ==
[2017-09-30 13:57] VITALS: BP 121/73
[2017-09-30] MEDS ORDERED: Albuterol/Ipratropium NEB.SOL* Albuterol 2.5 MG/Ipratropium 0.5 MG 3 ML INH ONE (14:22)
--- NOTE | 2017-09-30 14:52 | UC ---
Seema Alexander Emily, scribed for Radha Flores MD on 09/30/17 at 1405 . Respiratory Complaint HPI - HPI Summary HPI Summary: This patient is a 52 year old F presenting to critical access hospital care accompanied by family with a chief complaint of chest congestion that began approx 09/19/2017, and worsened on 09/28/2107. The patient rates the pain 2/10 in severity. Symptoms aggravated by nothing. Symptoms alleviated by Prednisone (20 mg at 1700 yesterday). Patient reports SOB, CP, head congestion, productive cough ( green sputum), decreased appetite, and black stool (began 4-5 days ago). Patient denies fever. Pt reports she quit smoking 3 and a half months ago. Pt reports she had similar symptoms previously, and ended up with stress on the heart. Pt reports taking erythromycin on 09/28/2017 and 09/29/2017. - History of Current Complaint Stated Complaint: CHEST PAIN,COUGH,SOB,CONGESTION Time Seen by Provider: 09/30/17 13:40 Hx Obtained From: Patient Hx Last Menstrual Period: 4 MONTHS AGO ?: No Onset/Duration: Sudden Onset, Lasting Weeks, Still Present Timing: Constant Severity Initially: Mild Severity Currently: Mild Pain Intensity: 2 Pain Scale Used: 0-10 Numeric Character: Cough: Productive Aggravating Factors: Nothing Alleviating Factors: Nothing - Allergies/Home Medications Allergies/Adverse Reactions: Allergies Allergy/AdvReac Type Severity Reaction Status Date / Time cefuroxime Allergy Rash Verified 09/30/17 13:50 Sulfa (Sulfonamide Allergy Hives Verified 09/30/17 13:50 Antibiotics) Home Medications: Home Medications Aspirin 2 tab PO ONCE 09/30/17 [History Confirmed 09/30/17] Lipase/Protease/Amylase [Julien Dr 6,000 Units Capsule] 2 tab PO TID 09/30/17 [ History Confirmed 09/30/17] predniSONE TAB* [Deltasone TAB*] 20 mg PO ONCE 09/30/17 [History Confirmed 09/30] PMH/Surg Hx/FS Hx/Imm Hx Previously Healthy: No Cardiovascular History: Cardiac Disease Respiratory History: COPD, Bronchitis, Pneumonia GI/ History: Gastroesophageal Reflux Psychological History: Depression - Surgical History Surgical History: Yes Surgery Procedure, Year, and Place: c section, [place] [facility] [place] Family History Known Family History: Negative: Renal Disease, Respiratory Disease, Seizure Disorder - Social History Occupation: Disabled Lives: Alone Alcohol Use: Weekly Alcohol Amount: 6-8 drinks per week Substance Use Type: None Substance Use Comment - Amount & Last Used: oxycodone Smoking Status (MU): Former Smoker Type: Cigarettes Amount Used/How Often: 1 1/2 PPD Have You Smoked in the Last Year: Yes Household Exposure Type: Cigarettes - Immunization History Most Recent Influenza Vaccination: 2017 Most Recent Pneumonia Vaccination: unsure Review of Systems Constitutional: Fatigue, Other - see hpi Skin: Negative Eyes: Negative ENT: Other - Positive head congestion decreased hearing see hpi Respiratory: Shortness Of Breath, Cough, Other - Positive chest congestion Cardiovascular: Chest Pain Gastrointestinal: Abdominal Pain - chronic abd pain d/t chronic pancreatitis, Other - on and off black stool, chronic. Reports that last 5 days, stool darker. Denies worse or new abd pain Genitourinary: Negative Motor: Negative Neurovascular: Negative - denies issues Musculoskeletal: Negative Neurological: Negative Psychological: Negative - no new c/o's Is Patient Immunocompromised?: No - however + hx alcohol All Other Systems Reviewed And Are Negative: Yes Physical Exam Triage Information Reviewed: Yes Appearance: Well-Appearing, Thin Vital Signs: Initial Vital Signs Temp 98.3 F 09/30/17 13:52 Pulse 80 09/30/17 13:52 Resp 22 09/30/17 13:52 BP 121/73 09/30/17 13:52 Pulse Ox 97 09/30/17 13:52 Vital Signs Reviewed: Yes Eye Exam: Normal ENT Exam: Other ENT: Positive: Other - + bilat cerumen impaction Oropharynx - + post pharyng redness, c/w cough. Neck exam: Normal Neck: Positive: Supple Respiratory: Positive: Other: - No dyspnea, no tachypnea, normal respiratory rate + scattered rhonchi R>L. + scattered exp wheeze, no stridor. + rhonchorus cough Cardiovascular Exam: Normal Cardiovascular: Positive: RRR - correlates with radial pulse, Other: - Good general skin color, good capillary refill Abdominal Exam: Normal - no hsm, nontender to pressure no cvat appreciated Abdomen Description: Positive: Nontender Bowel Sounds: Positive: Present Musculoskeletal Exam: Normal Musculoskeletal: Positive: Strength Intact - gait steady Neurological Exam: Normal - grossly nonfocal Neurological: Positive: Other: - Nonfocal, grossly intact Psychological Exam: Normal Psychological: Positive: Other: - Conversing easily and appropriately, full sentances NAD. Skin Exam: Normal Skin: Positive: Other - no visible or reported rash non-diaphoretic UC Diagnostic Evaluation - Laboratory O2 Sat by Pulse Oximetry: 97 - EKG Cardiac Rate: NL Cardiac Rhythm: Sinus: Normal - Taken at 1342 at 82 BPM with DC 123 and QTC 439 Respiratory Course/Dx - Course Course Of Treatment: S/sx c/w acute on chronic bronchitis in the setting of copd. Former smoker (quit x several months). Chronic EtOH, recent darker color , not unusual for pt. But will check labs, encouraged f/u PCP. Rx - predenisone taper. Rx - albuterol inhaler (does not have one at this time). No longer has a nebulizer, will check with PCP about obtaining a new one. Ears flushed by RN. CXR ordered. N/a at time of sign out to Dr. Gomez. Questions as posed answered to the best of my ability. - Differential Dx/Diagnosis Provider Diagnoses: SOB, cough. see above COA. S/o Dr. Gomez 14:45 Discharge - Sign-Out/Discharge Documenting (check all that apply): Sign-Out Patient Signing out patient TO: Liz Gomez - Discharge Plan Prescriptions: Albuterol HFA INHALER* [Ventolin HFA Inhaler*] 1 - 2 puff INH Q4H PRN #1 mdi PRN Reason: Wheezing predniSONE TAB* [Deltasone TAB*] 10 mg PO DAILY #20 tab Referrals: Bar Knox MD [Primary Care Provider] - The documentation as recorded by the Seema holloway Emily accurately reflects the service I personally performed and the decisions made by me, Radha Flores MD.
--- NOTE | 2017-09-30 14:55 | RAD ---
HISTORY: Cough, shortness of breath COMPARISONS: June 16, 2017 VIEWS: 4: Frontal dual-energy and lateral views of the chest. FINDINGS: CARDIOMEDIASTINAL SILHOUETTE: The cardiomediastinal silhouette is normal. BINTA: The binta are normal. PLEURA: The costophrenic angles are sharp. No pleural abnormalities are noted. LUNG PARENCHYMA: There is hyperinflation with flattening of the diaphragm and expansion of the AP diameter of the chest. ABDOMEN: The upper abdomen is clear. There is no subphrenic gas. BONES AND SOFT TISSUES: No bone or soft tissue abnormalities are noted. OTHER: None. IMPRESSION: HYPERINFLATION, CONSISTENT WITH COPD. NO ACTIVE CARDIOPULMONARY DISEASE.
[2017-09-30] MEDS ORDERED: predniSONE TAB* 20 MG PO ONE (15:25)
[2017-09-30 18:49] LABS: ABS Basophils 0 10^3/ul (0-0.2); ABS Eosinophils 0 10^3/ul (0-0.6); ABS Lymphocytes 1.7 10^3/ul (1.0-4.8); ABS Monocytes 0.6 10^3/ul (0-0.8); ABS Neutrophils 5.4 10^3/ul (1.5-7.7); ABS Nucleated RBC 0 10^3/ul; Eosinophil % 0.4 % (0-6); Hematocrit 35 % (35-47); Hemoglobin 12.1 g/dl (12.0-16.0); Lymphocyte % 21.8 % (25-47); Mean Corpuscular HGB Conc 34 g/dl (31-36); Mean Corpuscular Hemoglobin 34 pg (27-31); Mean Corpuscular Volume 99 fL (80-97); Mean Platelet Volume 7.9 um3 (7.4-10.4); Nucleated Red Blood Cells % 0.1; Platelet Count 173 10^3/ul (150-450); Red Blood Count 3.58 10^6/ul (4.0-5.4); Red Cell Distribution Width 13 % (10.5-15); White Blood Count 7.7 10^3/ul (3.5-10.8)
[2017-09-30 19:02] LABS: EGFR Non-African American 115.2 (>60)
== END 2017-09-30 15:40 | disposition home or self-care (01) ==
LOC: UCEAST 13:34
DX: R06.02 Shortness of breath (principal); R05 Cough; H61.23 Impacted cerumen, bilateral; I51.9 Heart disease, unspecified; J44.9 Chronic obstructive pulmonary disease, unspecified; K21.9 Gastro-esophageal reflux disease without esophagitis; F32.9 Major depressive disorder, single episode, unspecified; Z87.891 Personal history of nicotine dependence
CPT/HCPCS: 36415; 71046; 80053; 83690; 85025; 93005; 99212; A9270-GY; G0463; J7512

== ENCOUNTER 2019-07-11 16:17 | Emergency (ER) | payer MEDICARE, MEDICAID ==
[2019-07-11 16:34] VITALS: BP 109/78
--- NOTE | 2019-07-11 16:38 | UC ---
Skin Complaint HPI - HPI Summary HPI Summary: 54yo female presenting with right nipple pain x4 days. Patient states her right nipple is inverted and became infected ~10 years ago and was lanced and drained. States "it was staph" but is unsure whether or not it was MRSA. Patient states "ever since, it gets infected every few years and needs drained again." Patient states she has even "poked it with a needle in the past to get in to drain." States there is a spot to the right of the nipple where the fluid has drained in the past. States she thought there was some drainage from it yesterday but states she is not sure. Patient states she has been taking hot showers and applying warm washcloths but still cannot get it to drain. - History of Current Complaint Chief Complaint: UCSkin Stated Complaint: SKIN ISSUE Hx Last Menstrual Period: post menopause Pain Intensity: 3 - Allergy/Home Medications Allergies/Adverse Reactions: Allergies Allergy/AdvReac Type Severity Reaction Status Date / Time cefuroxime Allergy Rash Verified 06/25/19 09:27 Sulfa (Sulfonamide Allergy Hives Verified 06/25/19 09:27 Antibiotics) Home Medications: Home Medications Budesonide/Formote 80/4.5(NF) [Symbicort 80/4.5 (NF)] 2 puff INH BID 09/17/16 [ History Confirmed 06/25/19] oxyCODONE TAB* [Roxycodone TAB 5 mg*] 15 mg PO Q4H PRN 06/17/17 [History Confirmed 06/25/19] DOXYcycline CAP(*) [DOXYcycline 100MG CAP(*)] 100 mg PO BID #10 cap 07/11/19 [Rx ] Escitalopram * [Lexapro 10 mg (NF)] 10 mg PO DAILY 07/11/19 [History Confirmed 07/11/19] PMH/Surg Hx/FS Hx/Imm Hx - Surgical History Surgical History: Yes Surgery Procedure, Year, and Place: c [place] [facility] [place]-benign - Family History Known Family History: Positive: None Negative: Renal Disease, Respiratory Disease, Seizure Disorder - Social History Alcohol Use: Daily Alcohol Amount: 6-7 drinks per week Substance Use Type: None Substance Use Comment - Amount & Last Used: oxycodone Smoking Status (MU): Current Every Day Smoker Type: Cigarettes Amount Used/How Often: 1/2 PPD Have You Smoked in the Last Year: Yes When Did the Patient Quit Smoking/Using Tobacco: 05/12/2017 Household Exposure Type: Cigarettes - Immunization History Most Recent Influenza Vaccination: 2017 Most Recent Pneumonia Vaccination: unsure Physical Exam - Summary Physical Exam Summary: Vital Signs Reviewed: Yes A+Ox3, no distress Eyes: Conjunctiva Clear, ITZEL. EOM intact and full ENT: Hearing grossly normal, TM x 2 clear, moist, uvula midline, no exudate, no erythema Neck: Positive: Supple Respiratory: Positive: No respiratory distress, No accessory muscle use + CTA throughout no w/r Cardiovascular: RRR nl s1, s2 no m/r CBT <2 sec Abd: soft + BS nt/nd no guarding Musculoskeletal Exam: SHANNON x 4 without difficulty Strength Intact, ROM Intact Neurological: Positive: Alert, + sensation throughout Psychological: Positive: age appropriate behavior Skin: Positive: no rash, no ecchymosis Vital Signs: Initial Vital Signs Temp 97.6 F 07/11/19 16:26 Pulse 78 07/11/19 16:26 Resp 16 07/11/19 16:26 BP 109/78 07/11/19 16:26 Pulse Ox 98 07/11/19 16:26 Course/Dx - Course Course Of Treatment: I stressed the importance of follow up with her primary care provider to rule out the possible of inflammatory breast disease. I also discussed this patient with Dr. Bhatia who agreed with treatment plan. Discharge ED - Discharge Plan Condition: Stable Disposition: HOME Prescriptions: DOXYcycline CAP(*) [DOXYcycline 100MG CAP(*)] 100 mg PO BID #10 cap Patient Education Materials: Cellulitis (ED) Referrals: Bar Knox MD [Primary Care Provider] - As Soon As Possible Reji Garza MD [Medical Doctor] - As Soon As Possible [facility] [Provider Group] - As Soon As Possible Additional Instructions: Take 100mg of doxycycline twice daily for 7 days. You received the doses for the first two days here and the remainder of your prescription has been sent to your pharmacy for pickup. You may continue with warm compresses 2-3 times daily. DO NOT try to drain the area with any sharp objects as this puts you at risk for worsening infection. Go to the emergency room if you experience worsening redness after taking the antibiotic for 24 hours or if you experience fever or nausea and vomiting. Follow up with the surgery or dermatology referrals listed below for further evaluation of recurrent breast infection. It is also important that you follow up with your primary care provider to rule out the possibility of breast cancer. - Billing Disposition and Condition Condition: STABLE Disposition: Home
[2019-07-11] MEDS ORDERED: DOXYcycline CAP(*) 100 MG PO ONE (17:00)
== END 2019-07-11 17:45 | disposition home or self-care (01) ==
LOC: UCEAST 16:17
DX: N64.59 Other signs and symptoms in breast (principal); F17.210 Nicotine dependence, cigarettes, uncomplicated; Z88.1 Allergy status to other antibiotic agents; Z88.2 Allergy status to sulfonamides
CPT/HCPCS: 99212; A9270-GY; G0463

== ENCOUNTER 2019-07-12 15:18 | Emergency (ER) | payer MEDICARE, MEDICAID ==
[2019-07-12] MEDS ORDERED: Ketorolac INJ* 30 MG/ML 1 ML VIAL IV ONE (17:02)
[2019-07-12] MEDS ORDERED: NS 0.9% 1000 ML** 1,000 ML IV ONE (17:04)
--- NOTE | 2019-07-12 17:10 | UC ---
- HPI Summary HPI Summary: Patient is a 54 y/o F presenting to the ED for a chief complaint of right breast lump. Patient states that she also has erythema of the right breast. She describes the lump as having a stinging sensation similar to being stung by a bee. Patient denies drainage from the lump, but notes this is unusual. She denies fever, nausea, or vomiting. Patient has had several lumps in the same region of the right breast for the last 10 years. With prior episodes, the lump would drain, but patient is concerned as this recurrence of the lump has not drained. Patient was seen at [facility] and prescribed doxycycline. At that time, she was told the lump could not be drained. Prior to arrival to [facility] , patient took oxycodone. Patient is unsure why she has recurrences of the lump , but states she was initially believed to have a Staphylococcus infection and prescribed antibiotics without resolution. History of DM or hepatitis is denied. Patient denies being immunocompromised. PSHx is significant for inverted nipple surgery. Patient previously quit smoking, but began smoking again. Allergies are reviewed. Patients medication reviewed this visit. - History of Current Complaint Hx Obtained From: Patient Breast Chief Complaint: Breast, Right, Color Changes - Erythema Onset/Duration: Started Weeks Ago, Atraumatic, Still Present Timing: Constant Breast Associated Signs/Symptoms: Nodule/Mass - Right breast, Redness - Right breast - Additional Pertinent History Primary Care Physician: VERONICA - Allergy/Home Medications Allergies/Adverse Reactions: Allergies Allergy/AdvReac Type Severity Reaction Status Date / Time cefuroxime Allergy Rash Verified 06/25/19 09:27 Sulfa (Sulfonamide Allergy Hives Verified 06/25/19 09:27 Antibiotics) Home Medications: Home Medications oxyCODONE TAB* [Roxycodone TAB 5 mg*] 15 mg PO .Q4-6H PRN 06/17/17 [History Confirmed 07/12/19] DOXYcycline CAP(*) [DOXYcycline 100MG CAP(*)] 100 mg PO BID #10 cap 07/11/19 [ Rx Confirmed 07/12/19] Escitalopram * [Lexapro 10 mg (NF)] 15 mg PO DAILY 07/11/19 [History Confirmed 07/12/19] Budesonide/Formote 160/4.5(NF) [Symbicort 160/4.5 (NF)] 2 puff INH BID 07/12/19 [History Confirmed 07/12/19] traZODone TAB* [Desyrel TAB*] 100 mg PO BEDTIME 07/12/19 [History Confirmed 07/01] PMH/Surg Hx/FS Hx/Imm Hx Previously Healthy: Yes Other History Of: Negative For: Hepatitis B, Hepatitis C - Surgical History Surgical History: Yes Surgery Procedure, Year, and Place: c section, laminotomy-2003 [facility], right breast bx-benign - Family History Known Family History: Negative: Renal Disease, Respiratory Disease, Seizure Disorder - Social History Occupation: Unemployed Alcohol Use: Daily Alcohol Amount: 6-7 drinks per week Substance Use Type: Prescribed Substance Use Comment - Amount & Last Used: oxycodone Smoking Status (MU): Current Every Day Smoker Type: Cigarettes Amount Used/How Often: 1/2 PPD Have You Smoked in the Last Year: Yes When Did the Patient Quit Smoking/Using Tobacco: 05/12/2017 Household Exposure Type: Cigarettes - Immunization History Most Recent Influenza Vaccination: 2016 Most Recent Pneumonia Vaccination: unsure Review of Systems All Other Systems Reviewed And Are Negative: Yes Constitutional: Negative: Fever Skin: Positive: Other - Positive erythema of the right breast; negative drainage from the right breast lump Gastrointestinal: Negative: Vomiting, Nausea Musculoskeletal: Positive: Other: - Positive lump on the right breast Is Patient Immunocompromised?: No Physical Exam Triage Information Reviewed: Yes Vital Signs: Initial Vital Signs Temp 99 F 07/12/19 15:33 Pulse 87 07/12/19 15:33 Resp 16 07/12/19 15:33 BP 117/86 07/12/19 15:33 Pulse Ox 96 07/12/19 15:33 Vital Signs Reviewed: Yes Procedures - Sedation Patient Received Moderate/Deep Sedation with Procedure: No Diagnostics - Radiology Breast US Radiology Interpretation Completed By: Radiologist Summary of Radiographic Findings: Breast US IMPRESSION: Complex mass with cystic and solid components in the area of concern measuring 1.[address] Webber. Discharge ED - Sign-Out/Discharge Documenting (check all that apply): Patient Departure - Discharge - Discharge Plan Condition: Stable Disposition: HOME Patient Education Materials: Cellulitis (ED) Referrals: [facility] [Provider Group] Bar Knox MD [Primary Care Provider] - Additional Instructions: - Take antibiotics 2 times a day EXACTLY As prescribed - Okay to take ibuprofen (motrin, advil) and tylenol every 3 horus for pain or fever - Stay well hydrated -drink plenty of non-alcoholic, non-caffinated beverages - as discussed - it is VERY important that you follow-up with a general surgeon - call tomorrow for an appointment - if you develop fever, vomiting or other concerns return to the emergency department - Attestation Statements Document Initiated by Scribe: Yes Documenting Scribe: Shahana Galvez Provider For Whom Scribe is Documenting (Include Credential): Sandra Webber MD Scribe Attestation: IShahana, scribed for Sandra Webber MD on 07/12/19 at 1928. Status of Scribe Document: Ready
[2019-07-12 18:05] LABS: ABS Eosinophils 0.1 10^3/ul (0-0.6); ABS Lymphocytes 1.1 10^3/ul (1.0-4.8); ABS Monocytes 0.5 10^3/ul (0-0.8); ABS Neutrophils 5.6 10^3/ul (1.5-7.7); Eosinophil % 0.8 %; Hematocrit 37 % (35-47); Hemoglobin 12.6 g/dL (12.0-16.0); Lymphocyte % 15.5 %; Mean Corpuscular HGB Conc 34 g/dL (31-36); Mean Corpuscular Hemoglobin 34 pg (27-31); Mean Corpuscular Volume 98 fL (80-97); Nucleated Red Blood Cells % 0.1; Platelet Count 125 10^3/uL (150-450); Red Blood Count 3.74 10^6 /uL (3.70-4.87); Red Cell Distribution Width 13 % (10-15); White Blood Count 7.4 10^3/uL (3.5-10.8)
[2019-07-12 18:16] LABS: BUN/Creatinine Ratio 8.8 (8-20); Calcium 9.3 mg/dL (8.6-10.3); EGFR African American 132.8 (>60); EGFR Non-African American 109.7 (>60); Potassium 3.4 mmol/L (3.5-5.0)
[2019-07-12] MEDS ORDERED: DOXYcycline CAP(*) 100 MG PO ONE (19:22)
[2019-07-12 19:54] VITALS: BP 133/87
== END 2019-07-12 19:54 | disposition home or self-care (01) ==
LOC: ED 15:18
DX: N63.10 Unspecified lump in the right breast, unspecified quadrant (principal); N64.4 Mastodynia; N61.0 Mastitis without abscess; R50.9 Fever, unspecified; Z88.1 Allergy status to other antibiotic agents; Z88.2 Allergy status to sulfonamides; Z87.891 Personal history of nicotine dependence
CPT/HCPCS: 36415; 80048; 83605; 85025; 87040; 96361; 96374; 99283; A9270-GY; J1885